=== PATIENT | male | born 1995 | race African-American/Black ===

== ENCOUNTER 2018-09-16 21:08 | Emergency (ER) | payer OTHER ==
[~2018-09-16] VITALS: Ht 180.3 cm; Wt 74.8 kg
[~2018-09-16 21:08] MED LIST: NYSTATIN OINT15 GM TOPIC
--- NOTE | 2018-09-16 22:06 | Emergency Room Report ---
History of Present Illness General Chief Complaint: Lower Extremity Injury Source: Patient Present Illness HPI Patient presents with complaints of injury that happened around 430 this evening patient reports that he was walking backwards and stepped into a cactus plant he felt a pricking sensation into the left foot There was a cactus tree there which he feels likely punctured the area Patient complains of sharp pain to the region in question just below the lateral malleoli are area on the left foot No obvious redness denies any knee pain pain is worse with touch or movement Allergies: Coded Allergies: No Known Allergies (Unverified , 12/04/12) Patient History Past Medical History: see triage record Pertinent Family History: none Reviewed Nursing Documentation: PMH: Agreed; PSxH: Agreed Nursing Documentation-PMH Past Medical History: No History, Except For Hx Asthma: Yes Review of Systems All Other Systems: negative except mentioned in HPI Physical Exam Vital Signs Date Time Temp Pulse Resp B/P (MAP) Pulse Ox O2 Delivery O2 Flow Rate FiO2 09/16/18 21:12 98.1 81 17 126/69 (88) 95 Room Air Sp02 EP Interpretation: reviewed, normal General Appearance: well appearing, no apparent distress Head: normocephalic, atraumatic Eyes: bilateral eye PERRL, bilateral eye EOMI ENT: hearing grossly normal, normal pharynx, TMs + canals normal, uvula midline Neck: full range of motion, supple, no meningismus, no bony tend Respiratory: chest non-tender, lungs clear Cardiovascular #1: regular rate, rhythm Gastrointestinal: non tender Musculoskeletal: other - Subjectively uncomfortable palpation just below the left lateral malleolar area no obvious areas of puncture no erythema no flaring of erythema no obvious foreign bodies visualized Neurologic: alert, oriented x3, responsive Skin: normal color, no rash Lymphatic: no adenopathy Medical Decision Making Diagnostic Impression: Primary Impression: Puncture wound ER Course Given the patient's history and presentation x-ray imaging was obtained no obvious foreign bodies visualized Clinical exam also no obvious areas of foreign body or puncture wound that is visible No obvious erythema or swelling and patient is stable for close outpatient follow-up Other X-Ray Diagnostic Results Other X-Ray Diagnostic Results : X-Ray ordered: left Foot # of Views/Limited Vs Complete: 2 View Indication: Pain EP Interpretation: Yes Interpretation: no dislocation, no soft tissue swelling, no fractures Impression: No acute disease Electronically Signed by: Eliane Sandra DO Last Vital Signs Date Time Temp Pulse Resp B/P (MAP) Pulse Ox O2 Delivery O2 Flow Rate FiO2 09/16/18 21:12 98.1 81 17 126/69 (88) 95 Room Air Status: improved Disposition: HOME, SELF-CARE Condition: Improved Additional Instructions: Patient is provided with the discharge instructions notified to follow up with primary doctor in the next 2-3 days otherwise return to the er with any worsening symptoms. Please note that this report is being documented using [employer] technology. This can lead to erroneous entry secondary to incorrect interpretation by the dictating instrument. Eliane Sandra DO Sep 16, 2018 22:06
[2018-09-16 23:20] VITALS: BP 126/69
--- NOTE | 2018-09-17 16:22 | Diagnostic Imaging Report ---
Indication: Pain, suspected foreign body Technique: 2 views left foot Comparison: none Findings: Exam is somewhat limited due to the availability of only 2 views No acute fractures. No dislocations. The joint spaces are preserved. No radiopaque foreign body demonstrated Impression: Negative. No evidence of radiopaque foreign body
== END 2018-09-17 06:21 | disposition home or self-care (01) ==
LOC: EMR 21:27
DX: S91.332A Puncture wound without foreign body, left foot, initial encounter (principal); W22.8XXA Striking against or struck by other objects, initial encounter; Y92.89 Other specified places as the place of occurrence of the external cause
CPT/HCPCS: 99283

== ENCOUNTER 2019-03-24 18:39 | Emergency (ER) | payer SELFPAY ==
[~2019-03-24] VITALS: Ht 180.3 cm; Wt 79.4 kg
[2019-03-24 19:10] VITALS: BP 109/77
--- NOTE | 2019-03-24 19:10 | NUR ---
ED Nurse Note: Patient walked in to Ed from home c/o flu like symptoms and vomiting x2 last night. Noted with cough. Patient also c/o lower back pain. Denies nausea and diarrhea. No episodes of vomiting today. no SOB. Afebrile. VSS. S/o at bedside.
--- NOTE | 2019-03-24 19:15 | NUR ---
ED Nurse Note: ERMd at bedside.
--- NOTE | 2019-03-24 19:26 | Emergency Room Report ---
History of Present Illness General Chief Complaint: Flu Like Symptoms Source: Patient Present Illness HPI 23-year-old male history of asthma presents with cough, congestion, fever/body aches x2 days, no aggravating relieving factors severity is moderate, constant, patient is requesting a note for work, she denies any chest pain or shortness of breath, patient states he took some DayQuil before coming in patient presents for evaluation Allergies: Coded Allergies: No Known Allergies (Unverified , 12/04/12) Patient History Past Medical History: see triage record Reviewed Nursing Documentation: PMH: Agreed; PSxH: Agreed Nursing Documentation-PMH Past Medical History: No History, Except For Hx Asthma: Yes Review of Systems All Other Systems: negative except mentioned in HPI Physical Exam Vital Signs Date Time Temp Pulse Resp B/P (MAP) Pulse Ox O2 Delivery O2 Flow Rate FiO2 03/24/19 18:46 98.8 90 18 109/77 (88) 96 Room Air Sp02 EP Interpretation: reviewed, normal General Appearance: well appearing, no apparent distress, alert Head: normocephalic, atraumatic Eyes: bilateral eye PERRL, bilateral eye EOMI ENT: uvula midline, moist mucus membranes, nasal congestion Neck: supple, thyroid normal, supple/symm/no masses Respiratory: lungs clear, no respiratory distress, no retraction, no accessory muscle use Cardiovascular #1: normal peripheral pulses, regular rate, rhythm, no edema, no gallop, no murmur Gastrointestinal: non tender, soft, no guarding, no rebound Musculoskeletal: normal inspection Neurologic: alert, oriented x3 Psychiatric: mood/affect normal Skin: no rash, warm/dry Medical Decision Making Diagnostic Impression: Primary Impression: Upper respiratory infection Qualified Codes: J06.9 - Acute upper respiratory infection, unspecified ER Course 23-year-old male presents most likely with an upper respiratory infection, low suspicion for sepsis, no suspicion for pneumonia symptomatic care recommended Patient given a work note Disposition home with return precautions Last Vital Signs Date Time Temp Pulse Resp B/P (MAP) Pulse Ox O2 Delivery O2 Flow Rate FiO2 03/24/19 18:46 98.8 90 18 109/77 (88) 96 Room Air Disposition: HOME, SELF-CARE Condition: Stable Referrals: [facility] Departure Forms: Return to Work Return to Work Date: Mar 27, 2019 Patient Instructions: Upper Respiratory Infection, Adult, [id number] Additional Instructions: The patient was provided with discharge instructions, notified to follow-up with a primary care doctor and or specialist in the next 24-48 hours, and to return to the ED if they have worsening of their symptoms. Please note that this report is being documented using [employer] technology. This can lead to erroneous entry secondary to incorrect interpretation by the dictating instrument. Abel Schultz MD Mar 24, 2019 19:26
[2019-03-24 19:30] VITALS: BP 109/77
--- NOTE | 2019-03-24 19:30 | NUR ---
ED Nurse Note: Pt cleared by ERMD for discharge. DC instructions was given and explained to pt and verbalized understanding of teachings. All medical deviecs such as ID band removed. Pt is AAO x4, ambulatory and left with all personal belongings. Accompanied by s/o.
== END 2019-03-24 22:20 | disposition home or self-care (01) ==
LOC: EMR 19:04
DX: J06.9 Acute upper respiratory infection, unspecified (principal)
CPT/HCPCS: 99281